=== PATIENT | male | born 1985 | race Caucasian/White ===

== ENCOUNTER 2019-07-20 20:28 | Emergency (ER) | payer OTHER ==
[2019-07-20] MEDS ORDERED: DIPH/PERTUSS(ACELL)/TETANUS VAC/PF 0.5 ML SYR (>=10YO) IM ONE (21:06)
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
[2019-07-20] MEDS ORDERED: IBUPROFEN 600 MG TABLET PO ONE (23:15)
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
[2019-07-21 00:45] VITALS: BP 115/73
== END 2019-07-21 00:46 | disposition home or self-care (01) ==
LOC: ER 20:28
DX: S50.01XA Contusion of right elbow, initial encounter (principal); S50.311A Abrasion of right elbow, initial encounter; S20.211A Contusion of right front wall of thorax, initial encounter; M25.521 Pain in right elbow; R07.81 Pleurodynia; V49.50XA Passenger injured in collision with unspecified motor vehicles in traffic accident, initial encounter; F17.200 Nicotine dependence, unspecified, uncomplicated; F12.10 Cannabis abuse, uncomplicated; Z23 Encounter for immunization; Z88.8 Allergy status to other drugs, medicaments and biological substances; Z91.048 Other nonmedicinal substance allergy status
CPT/HCPCS: 71046; 90471; 90715; 99283